=== PATIENT | female | born 1970 | race African-American/Black ===

== ENCOUNTER → 2016-10-31 | Outpatient (CLI) | payer OTHER ==
[~2016-10-31] VITALS: Ht 163.8 cm; Wt 80.7 kg
[~2016-10-31] MED LIST: MIRALAX17 GM PO; MULTI-DAY VITA1 EACH PO; TYLENOL EXTRA500 MG PO; TYLENOL PM1 CAPLET PO
== END | disposition home or self-care (01) ==
LOC: AMB 10:56
PROC: 0DB68ZX Excision of Stomach, Via Natural or Artificial Opening Endoscopic, Diagnostic (ICD-10-PCS; principal; 2016-10-31)
DX: K29.70 Gastritis, unspecified, without bleeding (principal); K31.7 Polyp of stomach and duodenum; R03.0 Elevated blood-pressure reading, without diagnosis of hypertension; E05.90 Thyrotoxicosis, unspecified without thyrotoxic crisis or storm; M54.5 Low back pain
CPT/HCPCS: 88305; 88342 TC

== ENCOUNTER → 2016-12-19 | Outpatient (CLI) | payer OTHER | END | disposition home or self-care (01) | LOC: NUC 07:20 | DX: E05.20 Thyrotoxicosis with toxic multinodular goiter without thyrotoxic crisis or storm (principal); R79.89 Other specified abnormal findings of blood chemistry | CPT/HCPCS: 78014; 78999; A9512; A9531 ==

== ENCOUNTER 2017-02-15 19:23 | Inpatient (IN) | payer OTHER ==
[~2017-02-15] VITALS: Ht 163.8 cm; Wt 79.7 kg
[2017-02-15 20:26] LABS: HEMATOCRIT 39.5 % (36.0-46.0); MCH 29.5 PG (29.0-34.0); MCHC 32.4 G/DL (30.0-36.0); MEAN PLAT.VOLUME 10.6 uM^3 (9.5-12.4); PLATELET COUNT 255 K/uL (156-360); RBC DIS.WIDTH-CV 12.5 % (11.8-14.6); RED BLOOD COUNT 4.34 M/uL (3.80-5.20)
[2017-02-15 20:48] LABS: CHLORIDE 107 mEq/L (99-109); POTASSIUM 4.8 mEq/L (3.7-5.4); SODIUM 138 mEq/L (136-147)
[2017-02-15 20:49] LABS: GLUCOSE 94 mg/dL (70-99)
[2017-02-15 20:53] LABS: GFR ESTIMATE (CALCULATED) > 59 mL/min/
[2017-02-15 20:54] LABS: UREA NITROGEN (BUN) 19 mg/dL (9-23)
[2017-02-15 21:04] LABS: D-DIMER ELISA 1.21 mg/L FEU (< 0.57)
[2017-02-15 21:28] LABS: TROP-I INTERPRETATION NEGATIVE; TROPONIN-I 0.07 ng/mL (0.0-0.30)
[2017-02-15 21:34] LABS: ANION GAP 7 MEQ/L (2-14)
[2017-02-15 21:44] LABS: QUANTITATIVE HCG < 4.0 MIU/ML
[2017-02-15] MEDS ORDERED: METHIMAZOLE10 MG PO (22:32)
[2017-02-16 02:00] VITALS: BP 125/78
[2017-02-16 02:48] LABS: TROP-I INTERPRETATION NEGATIVE; TROPONIN-I < 0.01 ng/mL (0.0-0.30)
[2017-02-16 07:46] VITALS: BP 111/72
[2017-02-16 09:27] LABS: EOSINOPHIL (%) 1.3 % (0-5); EOSINOPHIL COUNT 0.1 K/uL (0-0.3); HEMATOCRIT 38.7 % (36.0-46.0); IMMATURE GRANULOCYTE (%) 0.3 % (0.0-0.7); INSTRUMENT ABS NEUTROPHIL CT 5.1 K/uL; LYMPHOCYTE COUNT 1.2 K/uL (1.0-2.8); MCH 29.8 PG (29.0-34.0); MCHC 32.6 G/DL (30.0-36.0); MCV 91.5 FL (83-99); MEAN PLAT.VOLUME 10.6 uM^3 (9.5-12.4); MONOCYTE (%) 7.3 % (3-12); MONOCYTE COUNT 0.5 K/uL (0-0.8); NEUTROPHIL (%) 74.2 % (45-76); NEUTROPHIL COUNT 5.1 K/uL (1.8-6.4); PLATELET COUNT 240 K/uL (156-360); RBC DIS.WIDTH-CV 12.7 % (11.8-14.6); RBC DIS.WIDTH-SD 41.6 % (39-53); RED BLOOD COUNT 4.23 M/uL (3.80-5.20); WHITE BLOOD COUNT 6.9 K/uL (4.1-10.2)
[2017-02-16 09:54] LABS: ALKALINE PHOSPHATASE 53 IU/L (3-129); ANION GAP 8 MEQ/L (2-14); CHLORIDE 105 MEQ/L (99-109); GFR ESTIMATE (CALCULATED) > 59 mL/min/; GLUCOSE 88 mg/dL (70-99); POTASSIUM 4.1 MEQ/L (3.7-5.4); SAMPLE HEMOLYSIS CHECK 0; SAMPLE ICTERIC CHECK 0; SAMPLE LIPEMIA CHECK 0; SODIUM 141 MEQ/L (136-147); TOTAL BILIRUBIN 1.3 MG/DL (0.0-1.0); UREA NITROGEN (BUN) 13 mg/dL (9-23)
[2017-02-16 09:59] LABS: TROP-I INTERPRETATION NEGATIVE; TROPONIN-I < 0.01 ng/mL (0.0-0.30)
[2017-02-16 11:08] VITALS: BP 120/79
[2017-02-16 15:20] VITALS: BP 123/64
[2017-02-16 20:02] VITALS: BP 123/77
[2017-02-17 00:02] VITALS: BP 113/64
[2017-02-17 04:30] VITALS: BP 101/63
[2017-02-17 07:59] VITALS: BP 118/82
[2017-02-17] MEDS ORDERED: ENTRESTO 24 MG1 EACH PO (12:03)
[2017-02-17] MEDS ORDERED: CARVEDILOL3.125 MG PO (12:03)
[2017-02-17] MEDS ORDERED: LASIX20 MG PO (12:04)
[2017-02-17 12:05] VITALS: BP 102/71
[2017-02-17] MEDS ORDERED: K-DUR10 MEQ PO (12:05)
[2017-02-17] MEDS ORDERED: CEFDINIR300 MG PO (12:06)
== END 2017-02-17 16:20 | disposition home or self-care (01) | DRG 177 ==
LOC: EME 19:23 → EXP 19:23 → 5SOUTH 02-16 00:29 → EDOF 02-16 00:29 → 5SOUTH 02-16 01:47
PROVIDERS: Internal Medicine; Physician Assistant
DX: J69.0 Pneumonitis due to inhalation of food and vomit (principal); I50.23 Acute on chronic systolic (congestive) heart failure; I63.9 Cerebral infarction, unspecified; E05.90 Thyrotoxicosis, unspecified without thyrotoxic crisis or storm; I44.7 Left bundle-branch block, unspecified; R74.8 Abnormal levels of other serum enzymes; K21.9 Gastro-esophageal reflux disease without esophagitis; I42.0 Dilated cardiomyopathy; R13.10 Dysphagia, unspecified; F32.9 Major depressive disorder, single episode, unspecified; R09.02 Hypoxemia; R04.2 Hemoptysis; I51.7 Cardiomegaly; Z88.6 Allergy status to analgesic agent; Z82.49 Family history of ischemic heart disease and other diseases of the circulatory system
CPT/HCPCS: 71020; 71275; 80048; 80053; 83880; 84145 90; 84443; 84484; 84702; 85025; 85027; 85379; 87040; 92522 GN; 92610 GN; 93005; 93306; 94640; 94640 76; 94799; 99281; 99285; J0692; J1644; J1940; J7030; J7050; S0030

== ENCOUNTER 2017-05-02 12:42 | Emergency (ER) | payer OTHER ==
[~2017-05-02] VITALS: Ht 162.6 cm; Wt 75.4 kg
[~2017-05-02 12:42] MED LIST changes: +CARVEDILOL3.125 MG PO; +CEFDINIR300 MG PO; +ENTRESTO 24 MG1 EACH PO; +K-DUR10 MEQ PO; +LASIX20 MG PO; +METHIMAZOLE10 MG PO
[2017-05-02 13:17] LABS: HEMATOCRIT 38.3 % (36.0-46.0); MCH 29.8 PG (29.0-34.0); MCHC 32.1 G/DL (30.0-36.0); MCV 92.7 FL (83-99); MEAN PLAT.VOLUME 9.7 uM^3 (9.5-12.4); PLATELET COUNT 223 K/uL (156-360); RED BLOOD COUNT 4.13 M/uL (3.80-5.20); WHITE BLOOD COUNT 3.6 K/uL (4.1-10.2)
[2017-05-02 13:26] LABS: CHLORIDE 106 mEq/L (99-109); POTASSIUM 4.2 mEq/L (3.7-5.4); SODIUM 139 mEq/L (136-147)
[2017-05-02 13:28] LABS: GLUCOSE 87 mg/dL (70-99)
[2017-05-02 13:30] LABS: ANION GAP 9 MEQ/L (2-14)
[2017-05-02 13:32] LABS: GFR ESTIMATE (CALCULATED) > 59 mL/min/
[2017-05-02 13:33] LABS: UREA NITROGEN (BUN) 13 mg/dL (9-23)
[2017-05-02 13:40] LABS: TROP-I INTERPRETATION NEGATIVE; TROPONIN-I < 0.01 ng/mL (0.0-0.30)
[2017-05-02 14:12] LABS: D-DIMER ELISA < 150.00 ng/mLDDU (<230)
[2017-05-02 16:25] LABS: TROP-I INTERPRETATION NEGATIVE; TROPONIN-I < 0.01 ng/mL (0.0-0.30)
[2017-05-02 17:13] VITALS: BP 120/75
== END 2017-05-02 17:14 | disposition home or self-care (01) ==
LOC: EME 12:42
PROVIDERS: Emergency Medicine
DX: I50.9 Heart failure, unspecified (principal); K21.9 Gastro-esophageal reflux disease without esophagitis; E05.90 Thyrotoxicosis, unspecified without thyrotoxic crisis or storm
CPT/HCPCS: 71020; 80048; 83880; 84484; 85027; 85379; 93005; 99281; 99285; J1940

== ENCOUNTER 2017-06-29 15:29 | Inpatient (IN) | payer OTHER ==
[~2017-06-29] VITALS: Ht 162.6 cm; Wt 71.5 kg
[2017-06-29 16:08] LABS: HEMATOCRIT 37.4 % (36.0-46.0); MCH 30.2 PG (29.0-34.0); MCHC 33.2 G/DL (30.0-36.0); MCV 91.2 FL (83-99); MEAN PLAT.VOLUME 10.1 uM^3 (9.5-12.4); PLATELET COUNT 254 K/uL (156-360); RBC DIS.WIDTH-CV 12.1 % (11.8-14.6); RBC DIS.WIDTH-SD 40.5 % (39-53); WHITE BLOOD COUNT 4.8 K/uL (4.1-10.2)
[2017-06-29 16:16] LABS: CHLORIDE 102 mEq/L (99-109); POTASSIUM 4.1 mEq/L (3.7-5.4); SODIUM 137 mEq/L (136-147)
[2017-06-29 16:19] LABS: GLUCOSE 91 mg/dL (70-99)
[2017-06-29 16:20] LABS: ANION GAP 13 MEQ/L (2-14)
[2017-06-29 16:21] LABS: TOTAL BILIRUBIN 1.5 mg/dL (0.0-1.0)
[2017-06-29 16:22] LABS: ALKALINE PHOSPHATASE 46 IU/L (3-129); GFR ESTIMATE (CALCULATED) > 59 mL/min/
[2017-06-29 16:23] LABS: UREA NITROGEN (BUN) 7 mg/dL (9-23)
[2017-06-29 16:26] LABS: LIPASE 12 U/L (1.0-51.0)
[2017-06-29 17:27] LABS: INTER. NORMALIZED RATIO 1.1; PROTHROMBIN TIME 11.8 SEC (10.2-12.9)
[2017-06-29 17:29] LABS: PTT 36.6 SEC (25-37)
[2017-06-29 17:36] LABS: ADD MIUA? NO; BILIRUBIN NEGATIVE; BLOOD NEGATIVE; COLOR STRAW ((YELLOW)); GLUCOSE (STRIP) NEGATIVE; KETONES NEGATIVE; LEUKOCYTES NEGATIVE; NITRITE NEGATIVE; PROTEIN (STRIP) NEGATIVE; SPECIFIC GRAVITY 1.006 (1.000-1.030); UROBILINOGEN 0.2 MG/DL (0.2-1.0)
[2017-06-29] MEDS ORDERED: ALDACTONE25 MG PO (21:17)
[2017-06-29] MEDS ORDERED: ZESTRIL2.5 MG PO (21:17)
[2017-06-29] MEDS ORDERED: METOPROLOL SUCC25 MG PO (21:18)
[2017-06-29] MEDS ORDERED: TRAMADOL HCL50 MG PO (21:18)
[2017-06-29] MEDS ORDERED: COLACE100 MG PO (21:22)
[2017-06-29] MEDS ORDERED: NITROGLYCERIN PR (21:22)
[2017-06-29] MEDS ORDERED: MIRALAX119 GM PO (21:23)
[2017-06-29 21:36] VITALS: BP 107/73
[2017-06-29 23:32] VITALS: BP 114/66
[2017-06-30 03:49] VITALS: BP 107/59
[2017-06-30 05:12] LABS: EOSINOPHIL (%) 1.9 % (0-5); EOSINOPHIL COUNT 0.1 K/uL (0-0.3); HEMATOCRIT 36.4 % (36.0-46.0); IMMATURE GRANULOCYTE (%) 0.2 % (0.0-0.7); INSTRUMENT ABS NEUTROPHIL CT 2.1 K/uL; LYMPHOCYTE COUNT 2.1 K/uL (1.0-2.8); MCH 30.7 PG (29.0-34.0); MCHC 33.5 G/DL (30.0-36.0); MCV 91.7 FL (83-99); MEAN PLAT.VOLUME 9.8 uM^3 (9.5-12.4); MONOCYTE (%) 10.7 % (3-12); MONOCYTE COUNT 0.5 K/uL (0-0.8); NEUTROPHIL (%) 43.7 % (45-76); NEUTROPHIL COUNT 2.1 K/uL (1.8-6.4); PLATELET COUNT 231 K/uL (156-360); RBC DIS.WIDTH-CV 12.2 % (11.8-14.6); RBC DIS.WIDTH-SD 41.1 % (39-53); RED BLOOD COUNT 3.97 M/uL (3.80-5.20); WHITE BLOOD COUNT 4.8 K/uL (4.1-10.2)
[2017-06-30 05:37] LABS: ANION GAP 5 MEQ/L (2-14); CHLORIDE 104 MEQ/L (99-109); GFR ESTIMATE (CALCULATED) > 59 mL/min/; GLUCOSE 90 mg/dL (70-99); POTASSIUM 4.4 MEQ/L (3.7-5.4); SAMPLE HEMOLYSIS CHECK 0; SAMPLE ICTERIC CHECK 0; SAMPLE LIPEMIA CHECK 0; SODIUM 138 MEQ/L (136-147); UREA NITROGEN (BUN) 6 mg/dL (9-23)
[2017-06-30 07:47] VITALS: BP 108/59
[2017-06-30 10:48] VITALS: BP 117/78
[2017-06-30 17:53] VITALS: BP 125/79
[2017-06-30 19:40] VITALS: BP 115/78
[2017-06-30 23:44] VITALS: BP 130/75
[2017-07-01 04:00] VITALS: BP 124/75
[2017-07-01 05:24] LABS: HEMATOCRIT 36.8 % (36.0-46.0); MCH 30.9 PG (29.0-34.0); MCHC 32.9 G/DL (30.0-36.0); MCV 93.9 FL (83-99); MEAN PLAT.VOLUME 10.4 uM^3 (9.5-12.4); PLATELET COUNT 280 K/uL (156-360); RBC DIS.WIDTH-CV 12.2 % (11.8-14.6); RED BLOOD COUNT 3.92 M/uL (3.80-5.20)
[2017-07-01 08:50] VITALS: BP 122/75
[2017-07-01 12:02] VITALS: BP 105/66
[2017-07-01 16:04] VITALS: BP 118/71
[2017-07-01 16:44] LABS: ADD MIUA? YES; BILIRUBIN NEGATIVE; BLOOD MODERATE; COLOR YELLOW ((YELLOW)); GLUCOSE (STRIP) NEGATIVE; KETONES NEGATIVE; LEUKOCYTES NEGATIVE; NITRITE NEGATIVE; PROTEIN (STRIP) NEGATIVE; SPECIFIC GRAVITY 1.002 (1.000-1.030); UROBILINOGEN 0.2 MG/DL (0.2-1.0)
[2017-07-01 17:03] LABS: BACTERIA 2+ /HPF; EPITHELIAL CELLS 2+ /HPF; MUCUS TRACE /LPF; RED BLOOD CELLS 0-5 /HPF (0-5); WHITE BLOOD CELLS 0-5 /HPF (0-5)
[2017-07-01 20:00] VITALS: BP 95/60
[2017-07-02 00:41] VITALS: BP 114/59
[2017-07-02 04:40] VITALS: BP 104/56
[2017-07-02 09:10] VITALS: BP 124/71
[2017-07-02 11:31] VITALS: BP 98/66
[2017-07-02 16:23] VITALS: BP 115/69
[2017-07-02 20:00] VITALS: BP 113/59
[2017-07-03 00:36] VITALS: BP 103/55
[2017-07-03 04:00] VITALS: BP 109/65
[2017-07-03 06:32] LABS: HEMATOCRIT 34.4 % (36.0-46.0); MCH 31.1 PG (29.0-34.0); MCHC 33.7 G/DL (30.0-36.0); MCV 92.2 FL (83-99); MEAN PLAT.VOLUME 10.4 uM^3 (9.5-12.4); PLATELET COUNT 206 K/uL (156-360); RBC DIS.WIDTH-CV 12.3 % (11.8-14.6); RBC DIS.WIDTH-SD 41.6 % (39-53); RED BLOOD COUNT 3.73 M/uL (3.80-5.20); WHITE BLOOD COUNT 5.4 K/uL (4.1-10.2)
[2017-07-03 09:54] VITALS: BP 120/64
[2017-07-03] MEDS ORDERED: POLYETHYLENE GL17 GM PO (10:51)
[2017-07-03 12:07] VITALS: BP 106/77
== END 2017-07-03 14:10 | disposition home or self-care (01) | DRG 347 ==
LOC: EME 15:29 → EDOF 20:45 → 5WEST 20:45 → ENRESERV 20:46 → 5WEST 21:28
PROVIDERS: Emergency Medicine; Hospitalist; Internal Medicine Gastroenterology; Nurse Practitioner Family; Student in an Organized Health Care Education/Training Program
DX: K60.2 Anal fissure, unspecified (principal); K62.89 Other specified diseases of anus and rectum; K62.5 Hemorrhage of anus and rectum; K64.4 Residual hemorrhoidal skin tags; K59.00 Constipation, unspecified; K31.9 Disease of stomach and duodenum, unspecified; K64.9 Unspecified hemorrhoids; E11.9 Type 2 diabetes mellitus without complications; I11.0 Hypertensive heart disease with heart failure; I44.7 Left bundle-branch block, unspecified; K21.9 Gastro-esophageal reflux disease without esophagitis; I50.23 Acute on chronic systolic (congestive) heart failure; K56.41 Fecal impaction; I34.0 Nonrheumatic mitral (valve) insufficiency; E03.9 Hypothyroidism, unspecified; I42.0 Dilated cardiomyopathy; F41.9 Anxiety disorder, unspecified; Z90.710 Acquired absence of both cervix and uterus; Z23 Encounter for immunization; Z87.01 Personal history of pneumonia (recurrent); Z88.0 Allergy status to penicillin; Z88.1 Allergy status to other antibiotic agents; Z91.040 Latex allergy status; Z82.49 Family history of ischemic heart disease and other diseases of the circulatory system; Z83.3 Family history of diabetes mellitus
CPT/HCPCS: 74177; 80048; 80053; 81003; 82272; 83690; 85025; 85027; 85610; 85730; 88304; 90686; 93005; 94799; 99281; 99284; G0378; J0330; J0585; J0744; J1100; J1170; J1885; J2405; J3010; J7030; S0030